=== PATIENT | female | born 1990 | race Caucasian/White ===

== ENCOUNTER 2020-09-12 02:18 | Emergency (ER) | payer MEDICAID ==
[~2020-09-12] VITALS: Ht 170.2 cm; Wt 61.2 kg
[2020-09-12 02:39] VITALS: BP 126/81
== END 2020-09-12 03:40 | disposition left against medical advice (07) ==
LOC: ER 02:21
DX: H57.13 Ocular pain, bilateral (principal); Z53.21 Procedure and treatment not carried out due to patient leaving prior to being seen by health care provider

== ENCOUNTER 2022-04-21 12:18 | Emergency (ER) | payer MEDICAID ==
[~2022-04-21] VITALS: Ht 170.2 cm; Wt 80.0 kg
[2022-04-21 12:54] VITALS: BP 123/71
[2022-04-21] MEDS ORDERED: CEPH-510 PO (13:47)
== END 2022-04-21 18:14 | disposition home or self-care (01) ==
LOC: ER 12:18
DX: L03.221 Cellulitis of neck (principal); F17.210 Nicotine dependence, cigarettes, uncomplicated

== ENCOUNTER 2022-05-21 09:04 | Emergency (ER) | payer MEDICAID ==
[~2022-05-21] VITALS: Ht 177.8 cm; Wt 78.5 kg
[~2022-05-21 09:04] MED LIST: CEPH-510 PO
[2022-05-21 09:32] VITALS: BP 104/61
[2022-05-21] MEDS ORDERED: DexAMETHasone SOD PHOS 10MG/1ML VIAL INJ IM ONE (10:00)
[2022-05-21] MEDS ORDERED: BACDST PO ×2 (10:38→14:52)
[2022-05-21] MEDS ORDERED: HYDR-4924 PO ×2 (10:38→14:52)
== END 2022-05-21 10:50 | disposition home or self-care (01) ==
LOC: ER 09:04
DX: R59.0 Localized enlarged lymph nodes (principal); L30.9 Dermatitis, unspecified; L08.9 Local infection of the skin and subcutaneous tissue, unspecified
CPT/HCPCS: 70490; 96372; 99284; J1100